=== PATIENT | female | born 1990 ===

== ENCOUNTER 2017-08-07 13:40 | Emergency (ER) | payer MEDICAID ==
[2017-08-07 13:46] VITALS: BP 102/47; PULSE 61; RESP 16; TEMP 98.3; O2SAT 100
--- NOTE | 2017-08-07 14:03 | ED PDOC ---
Upper Extremity Pain/Injury Time Seen by Provider: 08/07/17 13:47 Chief Complaint (Nursing): Finger,Hand,&Wrist Chief Complaint (Provider): thumb pain History Per: Patient History/Exam Limitations: no limitations Onset/Duration Of Symptoms: Days (x2) Current Symptoms Are (Timing): Still Present Additional Complaint(s): 27-year-old [id number] female presents to the Emergency Department complaining of numbness and paresthesia to the left thumb for 2 days. Patient is still able to move affected finger. She reports sleeping on her left arm in an uncomfortable position prior to onset of symptoms. Initially the entire arm seemed numb but now she has regained sensation everywhere but the thumb. Patient denies any neck pain, shoulder pain, or other injury. No associated fever or chills, no chest pain, SOB or SCHROEDER. PMD: none Past Medical History Reviewed: Historical Data, Nursing Documentation, Vital Signs Vital Signs: Last Vital Signs Temp 98.3 F 08/07/17 13:43 Pulse 61 08/07/17 13:43 Resp 16 08/07/17 13:43 BP 102/47 L 08/07/17 13:43 Pulse Ox 100 08/07/17 13:43 - Medical History PMH: No Chronic Diseases - Surgical History Surgical History: No Surg Hx - Family History Family History: States: No Known Family Hx - Living Arrangements Living Arrangements: With Family - Social History Current smoker - smoking cessation education provided: Yes Alcohol: Occasional Drugs: Denies - Home Medications Home Medications: Ambulatory Orders Medication Instructions Recorded Acetaminophen [Tylenol 325mg tab] 325 mg PO Q6 PRN #30 tab 06/15/16 Docusate [Colace] 100 mg PO BID cap 01/21/17 Ferrous Sulfate [Feosol] 325 mg PO DAILY tab 01/21/17 Ibuprofen [Motrin Tab] 600 mg PO Q6 PRN tab 01/21/17 Cyclobenzaprine [Cyclobenzaprine 10 mg PO TID PRN #20 tab 08/07/17 HCl] Naproxen [Naprosyn] 500 mg PO BID #20 tab 08/07/17 - Allergies Allergies/Adverse Reactions: Allergies Allergy/AdvReac Type Severity Reaction Status Date / Time No Known Allergies Allergy Verified 08/07/17 13:42 Review of Systems ROS Statement: Except As Marked, All Systems Reviewed And Found Negative Constitutional: Negative for: Fever, Chills Cardiovascular: Negative for: Chest Pain Respiratory: Negative for: Shortness of Breath Musculoskeletal: Negative for: Neck Pain, Shoulder Pain, Arm Pain Neurological: Positive for: Numbness (and paresthesia to the left thumb). Negative for: Weakness Physical Exam - Reviewed Nursing Documentation Reviewed: Yes Vital Signs Reviewed: Yes - Physical Exam Appears: Positive for: Well, Non-toxic, No Acute Distress Head Exam: Positive for: ATRAUMATIC, NORMAL INSPECTION, NORMOCEPHALIC Skin: Positive for: Normal Color. Negative for: Rash Eye Exam: Positive for: Normal appearance Neck: Positive for: Normal, Painless ROM, Supple. Negative for: Pain On Movement Of Neck Extremity: Positive for: Normal ROM, Capillary Refill (< 2 sec), Other ( Slightly decreased sensation to dorsal aspect of left thumb with full ROM, no swelling or erythema to left thumb). Negative for: Deformity Neurologic/Psych: Positive for: Alert, Oriented - ECG O2 Sat by Pulse Oximetry: 100 (RA) Pulse Ox Interpretation: Normal Medical Decision Making Medical Decision Making: Initial Impression: 27 y/o with paresthesia to left thumb Time: 14:06 Plan: Left thumb placed in SPICA splint Pain medication offered, but patient declined dose in ED Patient is medically stable and requires no further intervention in the ED. Counseled regarding diagnosis and the need for follow up. Patient provided with prescriptions for naprosyn and cyclobenzaprine. Advised to follow up with primary doctor in 1-2 days for further evaluation. There is agreement to discharge plan. Return if symptoms persist or worsen. Scribe Attestation: Documented by Lizzy Merchant, acting as a scribe for Mary Marquez PA-C Provider Scribe Attestation: All medical record entries made by the Scribe were at my direction and personally dictated by me. I have reviewed the chart and agree that the record accurately reflects my personal performance of the history, physical exam, medical decision making, and the department course for this patient. I have also personally directed, reviewed, and agree with the discharge instructions and disposition. Procedures - Splinting Location: left hand Pre-Made Type: pre-made thumb spica splint Pre-Proc Neuro Vasc Exam: normal Post-Proc Neuro Vasc Exam: normal Disposition - Clinical Impression Clinical Impression: Paresthesia of thumb of left hand - Patient ED Disposition Is Patient to be Admitted: No Counseled Patient/Family Regarding: Diagnosis, Need For Followup, Rx Given - Disposition Referrals: [facility] [Outside] Disposition: Routine/Home Disposition Time: 14:01 Condition: STABLE Additional Instructions: Rest affected area, take meds as directed. Take hand out of splint to avoid stiffness. Follow up with clinic or primary care doctor for any persistent symptoms. Prescriptions: Cyclobenzaprine [Cyclobenzaprine HCl] 10 mg PO TID PRN #20 tab PRN Reason: Muscle Spasm Naproxen [Naprosyn] 500 mg PO BID #20 tab Instructions: Paresthesias (DC) Forms: [facility] (Japanese) - POA Present On Arrival: None
== END 2017-08-07 14:20 | disposition home or self-care (01) ==
LOC: H.ER 13:40
DX: R20.2 Paresthesia of skin (principal)